=== PATIENT | female | born 1970 | race Asian ===

== ENCOUNTER → 2023-05-29 09:02 | Outpatient (REF) | payer OTHER, SELFPAY | LOC: WDC 09:02 | PROVIDERS: ATTENDING PHYSICIAN Family Medicine | DX: N64.4 Mastodynia (principal) | CPT/HCPCS: 76642; 77062; 77066 ==

== ENCOUNTER 2023-10-07 09:54 | Emergency (ER) | payer OTHER, SELFPAY ==
[2023-10-07] VITALS (9 sets, daily range): BP systolic 105–122; BP diastolic 59–84
--- NOTE | 2023-10-07 10:36 | ED.GENMED ---
History of Present Illness
<Diogenes Murray PA-C - Last Filed: 10/07/23 15:44>
General
Chief Complaint: Vaginal Bleeding
Source: patient
Time Seen by Provider: 10/07/23 10:23
Travel History
Have you had any contact with someone who has COVID-19?: No
Do you have any symptoms of coronavirus? Fever > 100 degrees, chills, cough, shortness of breath, sore throat, loss of taste or smell, muscle aches, or headache?: No
History of Present Illness
History of Present Illness:
53-year-old female with past medical history of hypothyroidism presenting to the emergency department for evaluation after she has been having heavy vaginal bleeding for the last 1 and half weeks. Patient was at a medical conference in [place]
when the symptoms started and she went to a local facility who checked blood work and noted she had a hemoglobin of 7.6 and was tachycardic. Patient was treated with IV fluids and given a prescription for Provera which she has been taking and noted
that the Provera has slowed the bleeding somewhat but is still having bleeding. Patient went back to the facility to have labs done prior to coming home due to the continued bleeding and her hemoglobin at that time was 7.2. Patient continues to
take the Provera but today with the bleeding continuing she attempted to follow-up with her PHARMACY LABORATORY TECHNICIAN but they did not have any appointments available so she came to the emergency department to be further evaluated. Patient notes she is feeling a little
bit lightheaded and fatigued now. She notes a hemoglobin with a baseline of around 12. Denies any fevers, chills, rigors. She denies any use of anticoagulants. No history of needing blood transfusions. Social history is noted for patient being
a primary care provider. No other concerns.
Past History
<Diogenes Murray PA-C - Last Filed: 10/07/23 15:44>
Past History
ED Past Medical History: Hypothyroidism
ED Past Surgical History: None
Social History
Tobacco: Non-smoker
Alcohol: None
Drug: None
Personal:
Living: with family
Employment: Employed
Review of Systems
<Diogenes Murray PA-C - Last Filed: 10/07/23 15:44>
Review of Systems
All Other Systems: ROS reviewed and negative except as documented in HPI and ROS
Phy Exam
<Diogenes Murray PA-C - Last Filed: 10/07/23 15:44>
Physical Exam
Physical Exam:
GENERAL: Alert , in no apparent distress
EYE: conjunctiva clear
NECK: Supple
ENT: o/p clr, mmm.
CARDIAC: Regular rate and rhythm, no murmur
LUNGS: Clear breath sounds bilaterally, no acute respiratory distress, no wheezes/rales/rhonchi
NEUROLOGICAL: Alert and oriented
SKIN: Warm and dry, skin intact. Somewhat pale
MUSCULOSKELETAL: well perfused.
PSYCH: Normal and appropriate interaction.
Scores
<ALEXEY Redd Last Filed: 10/07/23 15:44>
Heart Failure Risk
Heart Failure Risk Score: Not Applicable
Heart Score for Chest Pain Patients
STEMI patient?: Not applicable
Withdrawal Assessment of Alcohol
Withdrawal Assessment Completed?: Not applicable
Course
<Diogenes Murray PA-C - Last Filed: 10/07/23 15:44>
Orders/Labs/Results
Orders:
Orders
10/07/23 10:17
Test Result ONCE
10/07/23 10:39
Type+Screen Urgent
Complete Blood Count/With Diff Urgent
Comprehensive Metabolic Panel Urgent
Ferritin Urgent
Comment: ADD ON
HCG, Serum Qualitative Screen Urgent
Iron Urgent
Total Iron Binding Urgent
10/07/23 10:45
Add On- LAB Urgent
Tests Added?: total iron, TIBC, ferritin
10/07/23 12:43
Blood Bank Products [* Blood Bank Products] Urgent
Blood Bank Products: *Packed RBC Leuko(PRBC's)
Quantity: 1
Transfuse Today: Yes
Reason: Anemia
Abnormal Lab Results
10/07/23
10:39
RBC 2.96 L 10^6/uL
(4.20-5.40)
Hgb 7.1 L g/dL
(12.0-16.0)
Hct 22.5 L %
(37.0-47.0)
MCV 76.0 L fL
(81.0-99.0)
MCH 24.0 L pg
(27.0-31.0)
MCHC 31.6 L g/dL
(33.0-37.0)
RDW 15.0 H %
(11.5-14.5)
Chloride 109 H mmol/L
(98-107)
Carbon Dioxide 20 L mmol/L
(22-30)
Glucose 108 H mg/dl
(70-99)
Iron 258 H ug/dl
(37-170)
TIBC 503 H ug/dl
(265-497)
% Saturation 51 H %
(20-50)
Crossmatch IS Only See Detail
10/07/23 10:39
10/07/23 10:39
Vital Signs
Initial and Last Documented VS:
Initial Vital Signs
Temp Pulse Resp BP Pulse Ox
98.2 F 78 18 120/62 100
10/07/23 10:09 10/07/23 10:09 10/07/23 10:09 10/07/23 10:09 10/07/23 10:09
Last Documented Vital Signs
Temp Pulse Resp BP Pulse Ox
99 F 71 12 106/68 100
10/07/23 15:13 10/07/23 15:13 10/07/23 15:13 10/07/23 15:13 10/07/23 15:09
<Familia Cardona MD - Last Filed: 10/07/23 13:09>
Orders/Labs/Results
Orders:
Orders
10/07/23 10:17
Test Result ONCE
10/07/23 10:39
Type+Screen Urgent
Complete Blood Count/With Diff Urgent
Comprehensive Metabolic Panel Urgent
Ferritin Urgent
Comment: ADD ON
HCG, Serum Qualitative Screen Urgent
Iron Urgent
Total Iron Binding Urgent
10/07/23 10:45
Add On- LAB Urgent
Tests Added?: total iron, TIBC, ferritin
10/07/23 12:43
Blood Bank Products [* Blood Bank Products] Urgent
Blood Bank Products: *Packed RBC Leuko(PRBC's)
Quantity: 1
Transfuse Today: Yes
Reason: Anemia
Abnormal Lab Results
10/07/23
10:39
RBC 2.96 L 10^6/uL
(4.20-5.40)
Hgb 7.1 L g/dL
(12.0-16.0)
Hct 22.5 L %
(37.0-47.0)
MCV 76.0 L fL
(81.0-99.0)
MCH 24.0 L pg
(27.0-31.0)
MCHC 31.6 L g/dL
(33.0-37.0)
RDW 15.0 H %
(11.5-14.5)
Chloride 109 H mmol/L
(98-107)
Carbon Dioxide 20 L mmol/L
(22-30)
Glucose 108 H mg/dl
(70-99)
Iron 258 H ug/dl
(37-170)
TIBC 503 H ug/dl
(265-497)
% Saturation 51 H %
(20-50)
Crossmatch IS Only See Detail
10/07/23 10:39
10/07/23 10:39
Vital Signs
Initial and Last Documented VS:
Initial Vital Signs
Temp Pulse Resp BP Pulse Ox
98.2 F 78 18 120/62 100
10/07/23 10:09 10/07/23 10:09 10/07/23 10:09 10/07/23 10:09 10/07/23 10:09
Last Documented Vital Signs
Temp Pulse Resp BP Pulse Ox
99 F 71 12 106/68 100
10/07/23 15:13 10/07/23 15:13 10/07/23 15:13 10/07/23 15:13 10/07/23 15:09
<Diogenes Murray PA-C - Last Filed: 10/07/23 15:44>
MDM/Problems Addressed
Differential Diagnosis Includes:
Dysfunctional uterine bleeding, uterine fibroids, perimenopause, malignancy, anemia
MDM/Problems Addressed:
53-year-old female presenting to the emergency department for evaluation of dysfunctional uterine bleeding and menorrhagia that has been ongoing for 1-1/2 weeks. Patient's hemoglobin reportedly usually around 12, trended downward to 7.6 and 7.2 on
labs done late last week. Patient is hemodynamically stable here in the ER. Had been on Provera and she notes while the bleeding has improved is still fairly significant. Attempted to see her PHARMACY LABORATORY TECHNICIAN today but was unable to get an appointment. Will
repeat labs including type and screen. Consider transfusion. Will consult with PHARMACY LABORATORY TECHNICIAN to help with disposition planning and further treatment.
<Diogenes Murray PA-C - Last Filed: 10/07/23 15:44>
*Pulse Oximetry
Patient hypoxic: no
*Critical Care Note
Total Time (30-74mins, 75-104mins- exclusive of procedures): Not Applicable
<Diogenes Murray PA-C - Last Filed: 10/07/23 15:44>
Patient Management
Discussion with other providers: Divisional Human Resources Director
Escalation/DeEscalation of care consider admission/obs:
Patient completed transfusion without difficulty. Prescriptions for Aygestin and ferrous sulfate were sent to pharmacy. She was given the information for PHARMACY LABORATORY TECHNICIAN to follow-up with tomorrow which she has scheduled for 2 PM. She was also provided with
information for hematology at her request. Patient is aware of return precautions but otherwise stable for discharge home.
ED Attending Note
<Diogenes Murray PA-C - Last Filed: 10/07/23 15:44>
-
Portions of this chart may have been created with voice recognition software.� Occasional wrong word or��sound alike� substitutions may have occurred due to the inherent limitations of voice recognition software.
<Familia Cardona MD - Last Filed: 10/07/23 13:09>
ED Attending Note
Patient seen and examined by attending physician: Yes
I performed the substantive portion of visit, reviewed & personally made and approve the management plan that is documented in note by myself or ANYI.: Yes
ED Attending Note:
53-year-old female irregular menses for a long time. Heavy at times. However the last 2 to 3 weeks bleeding has been heavier. She was seen at a hospital in [place]. Hemoglobin there was 7.6. Was going through 8-9 tampons per day. They
started her on Provera. 20 mg/day. She temporarily increase that to 30 mg over the weekend. She is here primarily out of frustration to try to get into a PHARMACY LABORATORY TECHNICIAN physician. She denies syncope. She is down to 1 tampon per day.
On exam patient is nontoxic in no distress. Regular rate and rhythm. No respiratory distress. Abdomen nontender. Warm and dry. Perfusing well.
Hemoglobin 7.1 here. Discussed with PHARMACY LABORATORY TECHNICIAN. Changed to a stronger progesterone. Follow-up tomorrow at 2 PM. We did discuss blood which we recommended given the hemoglobin is 7.1. Risk-benefit explained.
Discharge Plan
Departure
Patient Disposition: Home (Routine Discharge)
Date of Disposition: 10/07/23
Time of Disposition: 15:12
Patient with high blood pressure during this ER visit?: No
Discharge Problem:
Menorrhagia, Anemia
Instructions: Heavy Periods (DC)
Prescriptions:
New
norethindrone acetate 5 mg tablet
5 mg PO TID 10 Days Qty: 30 0RF
ferrous sulfate 325 mg (65 mg iron) tablet
325 mg PO DAILY Qty: 30 0RF
No Action
levothyroxine 112 MCG tablet
112 mcg PO DAILY
Referrals:
Nevin Munoz MD [Active] - (Hematology)
Hue Mehta MD [Active] - (Tomorrow @ 2pm)
Lucina Aleman DO [Family Provider] -
Interventions
Interventions:
*Risk Screen - Suicide Last Done: 10/07/23 10:29
*General Assessment Last Done: 10/07/23 10:29
*Neglect/Abuse Screening Last Done: 10/07/23 10:29
ED- Fall Risk Assessment Last Done: 10/07/23 10:29
*ED COVID-19 Vaccine History Last Done: 10/07/23 10:12
*Nursing Disposition Last Done: 10/07/23 15:37
ED-Female Genitourinary Assessment Last Done: 10/07/23 10:29
Discharge Date and Time
Discharge Date/Time: 10/07/23 15:38
Print Language: THAI
[2023-10-07 10:55] LABS: % Basophils 0.6 % (0-2); % Eosinophils 1.5 % (0-6); % Immature Granulocytes 0.3 % (0-0.5); % Lymphocytes 26.8 % (20.5-51.1); % Monocytes 6.5 % (1.7-9.3); % Neutrophils 64.3 % (42.2-75.2); Absolute Basophils 0.1 10^3/uL (0-0.2); Absolute Eosinophils 0.1 10^3/uL (0-0.7); Absolute Lymphocytes 2.3 10^3/uL (1.2-3.4); Absolute Monocytes 0.6 10^3/uL (0.1-0.6); Absolute Neutrophils 5.5 10^3/uL (1.4-6.5); Hematocrit 22.5 % (37.0-47.0); Hemoglobin 7.1 g/dL (12.0-16.0); Mean Corp Hgb Conc. 31.6 g/dL (33.0-37.0); Mean Platelet Volume 9.9 fL (7.4-10.4); Nucleated Red Blood Cells % 0 %; Platelet Count 391 10^3/uL (130-400); Red Blood Cell Count 2.96 10^6/uL (4.20-5.40); White Blood Cell Count 8.6 10^3/uL (4.8-10.8)
[2023-10-07 11:04] LABS: HCG, Serum Qualitative Screen Negative
[2023-10-07 11:07] LABS: ALT (SGPT) 19 U/L (0-35); AST (SGOT) 26 U/L (14-36); Albumin 4.3 g/dl (3.5-5.0); Alkaline Phosphatase 61 U/L (38-126); Blood Urea Nitrogen 13 mg/dl (7-17); Calcium 9.9 mg/dl (8.4-10.2); Carbon Dioxide 20 mmol/L (22-30); Chloride 109 mmol/L (98-107); Glucose 108 mg/dl (70-99); Potassium 4.1 mmol/L (3.5-5.1); Sodium 139 mmol/L (135-145); Total Bilirubin 0.5 mg/dl (0.2-1.3); Total Protein 7.5 g/dl (6.3-8.2); eGFR > 60.00
[2023-10-07 11:28] LABS: Iron 258 ug/dl (37-170)
[2023-10-07 11:37] LABS: Percent Saturation 51 % (20-50); Total Iron Binding Capacity 503 ug/dl (265-497)
[2023-10-07 12:21] LABS: Ferritin 16.3 ng/ml (11.1-264.0)
== END 2023-10-07 15:38 | disposition home or self-care (01) ==
LOC: EMR 09:54
PROVIDERS: EMERGENCY PHYSICIAN Emergency Medicine; FAMILY PHYSICIAN Family Medicine
DX: N92.0 Excessive and frequent menstruation with regular cycle (principal); D64.9 Anemia, unspecified; E03.9 Hypothyroidism, unspecified
CPT/HCPCS: 99285; 36430; 80053; 82728; 83540; 83550; 84703; 85025; 86850; 86900; 86901; 86920; P9016

== ENCOUNTER → 2023-10-17 10:53 | Outpatient (REF) | payer OTHER, SELFPAY | LOC: RAD 10:53 | PROVIDERS: ATTENDING PHYSICIAN Obstetrics & Gynecology Gynecology; FAMILY PHYSICIAN Family Medicine | DX: N93.9 Abnormal uterine and vaginal bleeding, unspecified (principal) | CPT/HCPCS: 76830; 76856 ==

== ENCOUNTER → 2023-10-30 11:55 | Outpatient (REF) | payer OTHER, SELFPAY | LOC: MRI 3T 11:55 | PROVIDERS: ATTENDING PHYSICIAN Obstetrics & Gynecology Gynecology; FAMILY PHYSICIAN Family Medicine | DX: D25.9 Leiomyoma of uterus, unspecified (principal) | CPT/HCPCS: 72197; A9575 ==

== ENCOUNTER 2023-11-05 06:28 | Day surgery (SDC) | payer OTHER, SELFPAY ==
--- NOTE | 2023-11-04 14:26 | PTCARENOTE ---
Dr. Anderson made aware of Hgb 7.1, no further action requested.
[2023-11-05] VITALS (11 sets, daily range): BP systolic 93–112; BP diastolic 56–72; BMI 25.5
[2023-11-05] MEDS: NORMOSOL-R 1000 IV (10:38)
[2023-11-05] MEDS: CELEBREX 200 MG PO (13:03)
[2023-11-05] MEDS: TYLENOL 1000 MG PO (13:04)
--- NOTE | 2023-11-05 13:50 | SUR.OPER ---
PATIENT IN LITHOTOMY, LEGS SECURED IN PADDED ASTON STIRRUPS, ARMS SECURED ON PADDED ARM BOARDS, SEATBELT ON
[2023-11-05] MEDS: ZOFRAN 4 MG IV (18:07)
== END 2023-11-05 18:17 | disposition home or self-care (01) ==
LOC: SDS 06:28
PROVIDERS: ATTENDING PHYSICIAN Obstetrics & Gynecology Gynecology
DX: D25.9 Leiomyoma of uterus, unspecified (principal); N84.1 Polyp of cervix uteri
CPT/HCPCS: 58145; 88305; 86850; 86900; 86901

== ENCOUNTER → 2024-03-31 13:23 | Outpatient (REF) | payer OTHER, SELFPAY | LOC: HWRAD 13:23 | PROVIDERS: ATTENDING PHYSICIAN Obstetrics & Gynecology Gynecology; FAMILY PHYSICIAN Family Medicine | DX: D25.9 Leiomyoma of uterus, unspecified (principal) | CPT/HCPCS: 76830; 76856 ==

== ENCOUNTER → 2024-08-25 13:20 | Outpatient (REF) | payer OTHER, SELFPAY | LOC: WDC 13:20 | PROVIDERS: ATTENDING PHYSICIAN Student in an Organized Health Care Education/Training Program | DX: Z12.31 Encounter for screening mammogram for malignant neoplasm of breast (principal) | CPT/HCPCS: 77063; 77067 ==

== ENCOUNTER 2024-08-28 06:18 | Day surgery (SDC) | payer OTHER, SELFPAY ==
[2024-08-28] VITALS (20 sets, daily range): BP systolic 77–129; BP diastolic 45–79; BMI 26.8
[2024-08-28 07:55] LABS: HCG, Urine Qualitative Screen Negative
[2024-08-28 08:11] LABS: Hematocrit 38.5 % (37.0-47.0); Hemoglobin 13.2 g/dL (12.0-16.0)
[2024-08-28] MEDS: TYLENOL 1000 MG PO (08:12)
[2024-08-28] MEDS: NORMOSOL-R/PLASMALYTE-A 1000 IV (08:12)
[2024-08-28] MEDS: CELEBREX 200 MG PO (08:12)
== END 2024-08-28 12:35 | disposition home or self-care (01) ==
LOC: SDS 06:18
PROVIDERS: ATTENDING PHYSICIAN Obstetrics & Gynecology Gynecology
DX: D25.9 Leiomyoma of uterus, unspecified (principal); N85.8 Other specified noninflammatory disorders of uterus
CPT/HCPCS: 58561; 88305; 81025; 85014; 85018; 86850; 86900; 86901

== ENCOUNTER 2024-11-29 11:12 | Emergency (ER) | payer OTHER, SELFPAY ==
[2024-11-29 11:19] VITALS: BP 155/80
[2024-11-29 11:35] VITALS: BP 116/54
[2024-11-29 11:55] VITALS: BP 123/76
[2024-11-29 12:01] VITALS: BMI 27.3
[2024-11-29 12:06] LABS: Hematocrit 36.8 % (37.0-47.0); Hemoglobin 12.5 g/dL (12.0-16.0); Mean Corp Hgb Conc. 34.0 g/dL (33.0-37.0); Mean Corpuscular Volume 85.4 fL (81.0-99.0); Nucleated Red Blood Cells % 0 %; Platelet Count 230 10^3/uL (130-400); Red Cell Dist. Width 13.2 % (11.5-14.5)
[2024-11-29 12:09] VITALS: BP 123/76
[2024-11-29 12:16] LABS: INR 0.96; PT 13.1 Sec (11.4-14.6)
[2024-11-29 12:17] LABS: APTT 32.1 Sec (23.4-35.0)
[2024-11-29 12:21] LABS: ALT (SGPT) 15 U/L (0-35); AST (SGOT) 17 U/L (14-36); Albumin 4.2 g/dl (3.5-5.0); Alkaline Phosphatase 76 U/L (38-126); Blood Urea Nitrogen 13 mg/dl (7-17); Calcium 9.6 mg/dl (8.4-10.2); Carbon Dioxide 24 mmol/L (22-30); Chloride 111 mmol/L (98-107); Estimated Creatinine Clearance 102 ml/min; Glucose 108 mg/dl (70-99); Magnesium 1.9 mg/dl (1.6-2.3); Potassium 4.1 mmol/L (3.5-5.1); Sodium 140 mmol/L (135-145); Total Protein 7.4 g/dl (6.3-8.2); eGFR > 60.00
[2024-11-29 12:32] LABS: Troponin I < 0.012 ng/ml
[2024-11-29 12:38] LABS: D-Dimer 0.65 ug/mlFEU (0.00-0.50)
[2024-11-29 13:00] VITALS: BP 107/73
--- NOTE | 2024-11-29 14:15 | ED.GENMED ---
History of Present Illness
General
Chief Complaint: Chest Pain
Time Seen by Provider: 11/29/24 12:06
History of Present Illness
History of Present Illness:
54-year-old with history of hyperlipidemia presents to the emergency department for ration of of chest discomfort rating to the left shoulder as well as jaw discomfort occurring intermittently for the past several days. She notes that 1 month ago
she traveled to [place] and felt as though she had bilateral leg edema and exertional shortness of breath while abroad. She denies any chest pain at rest. Denies any clear exertional component to symptoms. No associated fevers, chills, sweats,
coughing, nausea, or vomiting
Past History
Past History
ED Past Medical History: Hypothyroidism
ED Past Surgical History: None
Social History
Tobacco: Non-smoker
Alcohol: None
Drug: None
Personal:
Living: with family
Employment: Employed
Review of Systems
Review of Systems
Allergies reviewed?: Yes
All Other Systems: ROS reviewed and negative except as documented in HPI and ROS
Phy Exam
Physical Exam
Physical Exam:
GEN: Well appearing, NAD, WDWN
HEENT: Oral mucosa moist, no scleral icterus
Cardiac: Regular rate and rhythm, no murmurs
Lung: No respiratory distress, no tachypnea, lungs clear to auscultation bilaterally
MSK: No gross deformity or injuries
Skin: Good color, no pallor or jaundice, no rashes
Neuro: AO x3, moves all extremities freely
Psych: Calm, cooperative
Scores
Heart Score for Chest Pain Patients
STEMI patient?: No
History: Slightly or Non-Suspicious
ECG: Normal
Age: >45 - <65 years
Risk Factors: 1 or 2 Risk Factors
Troponin: </= Normal Limit
Heart Score for Chest Pain Patients: 2
Heart Score Risk: 2.5% MACE over next 6 weeks
Course
Orders/Labs/Results
Orders:
Orders
11/29/24 11:13
EKG [Electrocardiogram (*1)] Urgent
Reason for Study: Chest Pain
EKG- Treatment ONCE
11/29/24 11:33
CR Chest - 2 Views Urgent
Comment:
Reason For Exam: sob
11/29/24 11:56
Complete Blood Count/With Diff Urgent
Comprehensive Metabolic Panel Urgent
D-Dimer Urgent
Comment: ADD ON
Magnesium Urgent
NT-proBNP Urgent
Comment: ADD ON
PT/INR [Prothrombin Time] Urgent
PTT Urgent
Troponin I Urgent
11/29/24 12:01
Add On- LAB Urgent
Tests Added?: Pro-BNP
11/29/24 12:27
Add On- LAB Urgent
Tests Added?: D Dimer
11/29/24 12:54
CT Chest PE Study Urgent
Comment:
Reason For Exam: SOB/chest pain, elevated dimer
Abnormal Lab Results
11/29/24
11:56
Hct 36.8 L %
(37.0-47.0)
D-Dimer 0.65 H ug/mlFEU
(0.00-0.50)
Chloride 111 H mmol/L
(98-107)
Glucose 108 H mg/dl
(70-99)
11/29/24 11:56
11/29/24 11:56
Vital Signs
Initial and Last Documented VS:
Initial Vital Signs
Temp Pulse Resp BP Pulse Ox
98.3 F 62 16 155/80 98
11/29/24 11:19 11/29/24 11:19 11/29/24 11:19 11/29/24 11:19 11/29/24 11:19
Last Documented Vital Signs
Temp Pulse Resp BP Pulse Ox
98.5 F 59 17 107/73 100
11/29/24 12:09 11/29/24 13:15 11/29/24 13:15 11/29/24 13:00 11/29/24 14:17
MDM/Problems Addressed
MDM/Problems Addressed:
Workup reveals a mildly elevated D-dimer, given recent travel and recent use of Lupron for uterine fibroid a PE study was obtained which showed no evidence for acute PE, will refer to cardiology as an outpatient
*Pulse Oximetry
SaO2: 100
Oxygen Mode of Delivery: Room air
Patient hypoxic: no
*Critical Care Note
Total Time (30-74mins, 75-104mins- exclusive of procedures): Not Applicable
ED Attending Note
-
Portions of this chart may have been created with voice recognition software.� Occasional wrong word or��sound alike� substitutions may have occurred due to the inherent limitations of voice recognition software.
Discharge Plan
Departure
Patient Disposition: Home (Routine Discharge)
Date of Disposition: 11/29/24
Time of Disposition: 14:15
Patient with high blood pressure during this ER visit?: No
Discharge Problem:
Atypical chest pain
Instructions: Chest Pain DCA Follow Up
Prescriptions:
No Action
levothyroxine [Synthroid] 150 mcg Tablet
150 mcg PO DAILY
Referrals:
Coleen Harirson MD [Family Provider, Family Practice]
Activity Restrictions/Additional Instructions:
Try over the counter NSAIDs for 3-5 days for shoulder pain
Interventions
Interventions:
*Risk Screen - Suicide Last Done: 11/29/24 11:19
*General Assessment Last Done: 11/29/24 12:09
*Neglect/Abuse Screening Last Done: 11/29/24 11:19
*ED- Fall Risk Assessment Last Done: 11/29/24 12:09
*ED COVID-19 Vaccine History Last Done: 11/29/24 12:09
*Nursing Disposition Last Done: 11/29/24 14:37
ED- Cardiac Assessment Last Done: 11/29/24 12:09
Discharge Date and Time
Discharge Date/Time: 11/29/24 14:38
Print Language: SETSWANA
== END 2024-11-29 14:38 | disposition home or self-care (01) ==
LOC: EMR 11:12
PROVIDERS: EMERGENCY PHYSICIAN Emergency Medicine; FAMILY PHYSICIAN Student in an Organized Health Care Education/Training Program
DX: R07.89 Other chest pain (principal); E78.5 Hyperlipidemia, unspecified; E03.9 Hypothyroidism, unspecified
CPT/HCPCS: 99284; 71046; 71275; 80053; 83735; 83880; 84484; 85025; 85379; 85610; 85730; 93005; Q9967

== ENCOUNTER → 2024-12-14 15:08 | Outpatient (REF) | payer OTHER, SELFPAY | LOC: HWRCS 15:08 | PROVIDERS: ATTENDING PHYSICIAN Internal Medicine Cardiovascular Disease; FAMILY PHYSICIAN Student in an Organized Health Care Education/Training Program | DX: R07.89 Other chest pain (principal) | CPT/HCPCS: 93306 ==